=== PATIENT | male | born 1985 | race Two or more races ===

== ENCOUNTER 2023-04-08 01:58 | Emergency (ER) | payer SELFPAY ==
[~2023-04-08] VITALS: Ht 177.8 cm; Wt 100.0 kg
[2023-04-08] MEDS ORDERED: fentaNYL CITRATE 100 MCG/2 ML VL ONE (02:04)
[2023-04-08] MEDS ORDERED: fentaNYL CITRATE 100 MCG/2 ML VL IV ONE (02:15)
[2023-04-08] MEDS ORDERED: ONDANSETRON HCL 4 MG/2 ML VIAL IV ONE (02:45)
[2023-04-08] MEDS ORDERED: HYDROmorphone HCL 2 MG/ML VL/or syr IV ONE ×2 (02:45→03:30)
[2023-04-08] MEDS ORDERED: TETANUS-DIPTH-ACEL PERTUSSIS 0.5ML SYR Tdap IM ONE (03:00)
[2023-04-08] MEDS ORDERED: ceFAZolin 2 GM/D5W100ml 100 ML IV ONE (03:00)
[2023-04-08 03:44] VITALS: BP 124/82
== END 2023-04-08 04:02 | disposition short-term general hospital (02) ==
LOC: ER 01:58
DX: S41.032A Puncture wound without foreign body of left shoulder, initial encounter (principal); W32.0XXA Accidental handgun discharge, initial encounter; Y93.89 Activity, other specified; Y92.098 Other place in other non-institutional residence as the place of occurrence of the external cause; Y99.8 Other external cause status
CPT/HCPCS: 36430; 71045; 73060; 86850; 86900; 86901; 86920; 90471; 90715; 96374; 96375; 99285; J1170; J2405; J3010; P9016